=== PATIENT | female | born 1970 | race African-American/Black ===

== ENCOUNTER → 2017-10-25 12:24 | Outpatient (CLI) | payer BC, SELFPAY ==
[2017-10-25 13:00] LABS: Amphetamine Urine VISTA NEGATIVE (<1000 ng/mL); Barbiturate Urine VISTA NEGATIVE (< 200 ng/mL); Benzodiazepine Urine VISTA NEGATIVE (< 200 ng/mL); Cocaine Urine VISTA NEGATIVE (< 300 ng/mL); Ecstacy Urine VISTA NEGATIVE (< 500 ng/mL); Methadone Urine VISTA NEGATIVE (< 300 ng/mL); PCP Urine VISTA NEGATIVE (< 25 ng/mL); THC Urine VISTA NEGATIVE (< 50 ng/mL); Vista UDS pH Range 5
== END ==
PROVIDERS: Visit Provider Anesthesiology Pain Medicine
DX: F11.20 Opioid dependence, uncomplicated (principal)
CPT/HCPCS: 80307

== ENCOUNTER → 2018-06-02 08:27 | Outpatient (CLI) | payer BC, SELFPAY ==
--- NOTE | 2018-06-02 08:31 | MRI_ITS ---
STUDY: MRI LUMBAR SPINE WITHOUT CONTRAST REASON FOR EXAM: Female, 48 years old. Low back pain and left leg numbness and pain TECHNIQUE: Standardized fat and water weighted pulse sequences were obtained in the sagittal and axial planes. COMPARISON: None FINDINGS: T12-L1: Normal endplates. Normal disc height, hydration and morphology. Normal bilateral facet joints. Normal central canal and bilateral lateral recesses. Normal bilateral intervertebral neural foramina. Minimal grade 1 L4-5 anterolisthesis. There is no substantial scoliosis. Normal conus medullaris that terminates at the L1 level. L1-2: Normal disc. Bilateral facet hypertrophy without compressive sequelae. L2-3: Normal disc. Bilateral facet hypertrophy without compressive sequelae. L3-4: Bulging annulus and bilateral facet hypertrophy with moderate bilateral foraminal stenoses. L4-5: Disc space narrowing and desiccation. Bulging annulus and central disc protrusion with bilateral facet hypertrophy and facet joint effusions. Mild central canal stenosis and severe bilateral foraminal stenoses. L5-S1: Disc desiccation. Bulging annulus and bilateral facet hypertrophy with moderate left foraminal stenosis. Normal visualized sacral ala. Normal visualized paraspinous soft tissue structures. Possible gallbladder dilation. MRI/Spine Lumbar (Routine) IMPRESSION: Multilevel degenerative disease as described. Grade 1 L4-5 anterolisthesis. Severe bilateral foraminal stenoses at the L4-5 level. Possible gallbladder dilation. Consider ultrasound correlation if clinically indicated. Electronically Signed: Wade Su MD at 9:45 EDT Tel , Service support ,
== END ==
PROVIDERS: Referring Provider Anesthesiology Pain Medicine; Visit Provider Anesthesiology Pain Medicine
DX: M54.9 Dorsalgia, unspecified (principal); M79.606 Pain in leg, unspecified
CPT/HCPCS: 72148